=== PATIENT | female | born 1970 | race Caucasian/White ===

== ENCOUNTER 2018-03-24 16:32 | Inpatient (IN) | payer OTHER ==
[~2018-03-24] VITALS: Ht 160 cm; Wt 69.9 kg
[~2018-03-24 16:32] MED LIST: SYNJARDY 12.5-1 EACH PO; SYNTHROID88 MCG PO
== END 2018-03-27 13:19 | disposition home or self-care, planned readmission (81) | DRG 743 ==
LOC: SURH 03-25 07:00 → CIR.AMB 03-25 08:52 → O/R 03-25 08:54 → SURG-SUITE 03-25 08:54 → EDSTATUS 03-25 09:02 → SURH 03-25 09:28 → SURG-SUITE 03-25 17:30
PROVIDERS: ADMIT Obstetrics & Gynecology Gynecology
PROC: 0UT24ZZ Resection of Bilateral Ovaries, Percutaneous Endoscopic Approach (ICD-10-PCS; 2018-03-25)
PROC: 0DNW4ZZ Release Peritoneum, Percutaneous Endoscopic Approach (ICD-10-PCS; 2018-03-25)
PROC: 0UT94ZZ Resection of Uterus, Percutaneous Endoscopic Approach (ICD-10-PCS; principal; 2018-03-25 07:00)
DX: N80.0 Endometriosis of uterus (principal); N80.1 Endometriosis of ovary; D25.1 Intramural leiomyoma of uterus; N94.4 Primary dysmenorrhea; N73.6 Female pelvic peritoneal adhesions (postinfective); R10.2 Pelvic and perineal pain

== ENCOUNTER 2021-04-26 02:33 | Emergency (ER) | payer OTHER ==
[~2021-04-26] VITALS: Ht 160 cm; Wt 74.8 kg
[2021-04-26] MEDS ORDERED: KETO10TA2 PO (06:53)
[2021-04-26] MEDS ORDERED: TAMS0.4C PO (06:53)
== END 2021-04-26 08:02 ==
LOC: ER 02:33
DX: N20.0 Calculus of kidney (principal); R16.0 Hepatomegaly, not elsewhere classified; Z88.0 Allergy status to penicillin; Z91.018 Allergy to other foods